=== PATIENT | female | born 1960 | race African-American/Black ===

== ENCOUNTER 2021-05-10 14:24 | Outpatient (REF) | payer OTHER, SELFPAY ==
[2021-05-10 16:37] LABS: Hematocrit 39.5 % (37.0-47.0); Hemoglobin 13.4 g/dl (12.0-16.0); Mean Corpuscular HGB Conc 33.9 g/dl (31.0-35.0); Mean Corpuscular Hemoglobin 29.1 pg (27.0-33.0); Mean Corpuscular Volume 85.9 fL (80.0-98.0); Mean Platelet Volume 10.6 fL (9.4-12.3); Platelet Count 361 X10*3/uL (160-400)
[2021-05-10 17:00] LABS: C Reactive Protein 1.03 mg/dL (< or = 0.50)
[2021-05-11 17:07] LABS: Transglutaminase Ab IgG <1.0 U/mL; Transglutaminase IgA <1.0 U/mL
== END 2021-05-10 14:25 | disposition home or self-care (01) ==
LOC: HO.LAB 14:24
PROVIDERS: PCP Internal Medicine; Visit Provider Nurse Practitioner Family
DX: R10.9 Unspecified abdominal pain (principal); K58.2 Mixed irritable bowel syndrome; K21.9 Gastro-esophageal reflux disease without esophagitis; D50.9 Iron deficiency anemia, unspecified
CPT/HCPCS: 36415; 85027; 86140; 86364

== ENCOUNTER → 2021-06-18 15:52 | Outpatient (BNVA) | payer OTHER, SELFPAY | PROVIDERS: PCP Internal Medicine; Visit Provider Nurse Practitioner Family | DX: Z13.89 Encounter for screening for other disorder (principal) ==

== ENCOUNTER 2021-10-17 15:43 | Outpatient (REF) | payer OTHER, SELFPAY ==
[2021-10-17 17:22] LABS: Alanine Aminotransferase 18 U/L (0-31); Albumin Level 4.2 g/dL (3.5-5.0); Alkaline Phosphatase 87 U/L (39-117); Anion Gap 15 (12-20); Aspartate Amino Transferase 16 U/L (5-31); Bilirubin Total < 0.2 mg/dL (0.0-1.0); Blood Urea Nitrogen 11 mg/dL (9-16); Carbon Dioxide 27 mmol/L (22-29); Chloride 101 mmol/L (96-108); Estimated Glomerular Filt Rate > 60; Glucose Random 86 mg/dL (60-115); Lipase 39 U/L (8-78); Potassium 4.1 mmol/L (3.3-5.1); Sodium 139 mmol/L (135-145); Total Protein 7.8 g/dL (6.5-8.0)
[2021-10-17 17:38] LABS: TSH reflex Free T4 1.14 uIU/mL (0.32-4.0)
[2021-10-17 17:48] LABS: Folate 8.9 ng/mL (> or = 4.0); Vitamin B12 414 pg/mL (200-900)
[2021-10-22 14:02] LABS: Vitamin D 25-OH, D2 <4 ng/mL; Vitamin D 25-OH, D3 61 ng/mL; Vitamin D 25-OH, Total 61 ng/mL (30-100)
== END 2021-10-17 15:44 | disposition home or self-care (01) ==
LOC: HO.LAB 15:43
PROVIDERS: Visit Provider Nurse Practitioner Family
DX: R10.9 Unspecified abdominal pain (principal); R19.7 Diarrhea, unspecified; E55.9 Vitamin D deficiency, unspecified
CPT/HCPCS: 36415; 80053; 82306; 82607; 82746; 83690; 84443

== ENCOUNTER 2022-05-06 11:15 | Day surgery (SDC) | payer OTHER, SELFPAY ==
[2021-12-03 13:17] VITALS: BMI 31.1
[2022-05-06] MEDS: Lactated Ringers 1,000 ML 50 ML IVCONT (11:37)
[2022-05-06 12:06] VITALS: BP 145/64; PULSE 92; RESP 20; TEMP 36.1; O2SAT 97
--- NOTE | 2022-05-06 12:53 | P.CONAN_ITS ---
[facility] Active Problems Active Problems: All Active Problems (Updated 05/10/21 @ 19:05 by Marilee Altamirano [facility]) GERD (gastroesophageal reflux disease) (Acute) IBS (irritable bowel syndrome) (Acute) Past Medical History Medical History GERD (gastroesophageal reflux disease) HTN (hypertension) Hyperlipidemia IBS (irritable bowel syndrome) S/P transesophageal echocardiogram (JULISA) Stroke Family History Family History Mother HTN (hypertension) History of open heart surgery Father Atrophic emphysema History of heart attack Social History Social History Patient Tobacco Use Status: Former Tobacco user Are you DNR?: No Advance Directives: No Advance Directives Information Provided: Yes Nutrition Risks: No Nutritional Risk Meds Allergies Allergy/AdvReac Type Severity Reaction Status Date / Time evolocumab Allergy Intermediate vomiting Verified 05/06/22 11:21 [From Sidra Cavazos] rosuvastatin Allergy Intermediate Tachycard Verified 05/06/22 11:21 ia Seasonal Allergies Allergy Intermediate hayfever Verified 05/06/22 11:21 synptoms Sulfa (Sulfonamide Allergy Intermediate Rash Verified 05/06/22 11:21 Antibiotics) metoprolol AdvReac Intermediate depression Verified 05/06/22 11:21 ramipril AdvReac Intermediate Cough Verified 05/06/22 11:21 aspirin AdvReac Mild Vomiting Verified 05/06/22 11:21 Active Medications: Current Medications Lactated Ringer's (Lr) 1,000 mls @ 50 mls/hr IVCONT .Q20H JON Last Admin: 05/06/22 11:37 Dose: 50 mls/hr Home Medications Medication Instructions Recorded Confirmed Last Taken Type alprazolam 1 mg tablet (Xanax) 1 mg PO QID 05/10/21 12/03/21 Unknown History beclomethasone dipropionate 80 2 spray intranasal DAILY 05/10/21 05/01/22 Unknown History mcg/actuation nasal HFA inhaler (QNASL) carisoprodol 350 mg tablet 350 mg PO QID PRN Pain 05/10/21 12/03/21 Unknown History clopidogrel 75 mg tablet 75 mg PO DAILY 05/10/21 12/03/21 Unknown History crisaborole 2 % topical ointment 1 appl topical BID 05/10/21 05/01/22 Unknown History (Eucrisa) ferrous sulfate 325 mg (65 mg 325 mg PO DAILY 05/10/21 05/01/22 Unknown History iron) tablet fluticasone propionate 50 2 spray intranasal DAILY 05/10/21 12/03/21 Unknown History mcg/actuation nasal spray,suspension hyoscyamine sulfate 0.375 mg 0.375 mg PO Q12H 05/10/21 12/03/21 Unknown History tablet,extended release,12 hr meclizine 25 mg tablet 25 mg PO TID PRN Dizziness 05/10/21 05/01/22 Unknown History olmesartan 20 1 tab PO BEDTIME 05/10/21 03/19/22 Unknown History mg-hydrochlorothiazide 12.5 mg tablet rosuvastatin 40 mg tablet (Crestor) 40 mg PO DAILY 05/10/21 05/01/22 Unknown History tobramycin 0.3 %-dexamethasone 0.1 0 drp ophthalmic (eye) 05/10/21 Unknown History % eye drops,suspension verapamil 180 mg 24 hr 360 mg PO BEDTIME 05/10/21 03/19/22 Unknown History capsule,extended release Exam Exam Date and Time: May 06, 2022 1253 Height,Weight and Vital Signs: Height 5 ft 2 in Weight 77.111 kg Last Vital Signs Temp 97 F 05/06/22 12:06 Pulse 92 05/06/22 12:06 Resp 20 05/06/22 12:06 BP 145/64 H 05/06/22 12:06 Pulse Ox 97 05/06/22 12:06 O2 Del Method Room Air 05/06/22 12:06 Airway Mallampati Class: III TM Dist: >3cm Neck ROM: Full Heart: RRR Lungs: CTA Assessment and Plan Final Anesthetic Review ASA Class: III Final Preanesthetic Review: Meds/Allgs Chart Reviewed, Consent Obtained/Reviewed and Anes Risks/Benef Reviewed Patient Risk: Low Procedure Risk: Low Anesthetic Plan Anesthetic Plan: MAC: Disposition: Standard PACU
--- NOTE | 2022-05-06 13:18 | MHC.SHP ---
Pre-Procedural Eval Section A Date of Service: 05/06/22 The patient is an INPATIENT: No The History & Physical has been completed within 30 days and I have reviewed it.: No Section B Chief Complaint: screening, IBS Relevant Family History (Specify if Yes): No Relevant Social History: Tobacco Use ( former smoker) Present Medications: see Short Stay Collaborative assessment Medical History: Significant History (GERD (gastroesophageal reflux disease) HTN (hypertension) Hyperlipidemia IBS (irritable bowel syndrome) S/P transesophageal echocardiogram (JULISA) Stroke) History of Previous Operations: No relevant previous surgery Allergies: Allergies Allergy/AdvReac Type Severity Reaction Status Date / Time evolocumab Allergy Intermediate vomiting Verified 05/06/22 11:21 [From Repatha [facility]] rosuvastatin Allergy Intermediate Tachycard Verified 05/06/22 11:21 ia Seasonal Allergies Allergy Intermediate hayfever Verified 05/06/22 11:21 synptoms Sulfa (Sulfonamide Allergy Intermediate Rash Verified 05/06/22 11:21 Antibiotics) metoprolol AdvReac Intermediate depression Verified 05/06/22 11:21 ramipril AdvReac Intermediate Cough Verified 05/06/22 11:21 aspirin AdvReac Mild Vomiting Verified 05/06/22 11:21 Review of Systems Sugical H&P ROS: Negative: Constitution, Cardiovascular and Respiratory and Yes, Specify: Gastrointestinal (IBS) Exam Surgical H&P Exam: Normal: Heart, Normal: Lungs, Normal: Extremities and Normal: Abdomen Plan Diagnosis/Plan: Unchanged I have reviewed the history and physical and performed a pertinent physical examination on my patient. No changes have occurred unless specified. Time Spent With Patient Time: Total time managing care of this patient today ____ minutes.
--- NOTE | 2022-05-06 13:29 | PM.OP ---
Brief Operative Note Date of Service: 05/06/22 Pre-op diagnosis: colon cancer screening, IBS Post-op diagnosis: other ( colon polyps, diverticulosis, hemorrhoids) Procedure: COLONOSCOPY TILL CECUM WITH BIOPSIES AND SNARE POLYPECTOMY Surgeon: Betzy Wilson MD Anesthesia: MAC Was an Communication Skills Instructor used for this Procedure?: Yes Communication Skills Instructor: Emeka Martínez Estimated blood loss (mL): 2 Pathology: other (A. Rt colon, B. TC polyps, C. Left colon) Condition: stable Disposition: PACU
--- NOTE | 2022-05-06 13:30 | P.OP_ITS ---
Operative Note Operative Note Date of Service: 05/06/22 Narrative: COLONOSCOPY TILL CECUM WITH BIOPSIES AND SNARE POLYPECTOMY Indication:? Colon cancer screening Endoscopist:? Betzy Wilson MD Anesthesia Provider:?Dr Milligan Anesthesia type:?MAC Consent: Indications for the procedure and potential complications of bleeding, perforation, reaction to medications and missed diagnosis were discussed with the patient and informed consent was obtained. Instrument: Olympus PCF H 190 L variable stiffness pediatric colonoscope Monitoring: Vital signs and clinical assessment, intermittent blood pressure monitoring, continuous EKG monitoring, Pulse oximetry and Carbon Dioxide monitoring were done throughout the procedure. Please see anesthesia flowsheet. Colon withdrawl time was 17 minutes. Procedure: The patient was placed in the left lateral decubitis position and pre-procedure medications were administered. After a digital rectal examination of the ano-rectum, the video colonoscope was inserted into the rectum and advanced through the colon to the cecum. The colonoscope was slowly withdrawn in a retrograde panoramic fashion and the colon mucosa was carefully examined including a retroflexed view of the rectum. Findings and interventions are described below. Procedure Difficulty: colon was long and there was some loop formation Findings: Terminal Ileum: Not evaluated Cecum: Normal Ascending Colon: Normal Transverse Colon: A 4-5 mm sessile polyp - removed with a cold biopsy. Two 7-8 mm diminutive appearing polyps removed with a cold snare Descending Colon: moderate diverticulosis Sigmoid Colon: Moderate diverticulosis Rectum: Normal Ano-rectum: Small internal hemorrhoids Colon preparation: Good Impression and Post Procedure Diagnosis: Colonoscopy Findings: Three small polyps removed Random biopsies were obtained from the right and left colon to check for microscopic colitis Moderate diverticulosis seen in the left colon Small hemorrhoids on retroflexed exam. Plan: Await pathology results Patient has an appointment on 05/20/22 in the GI Clinic with Marilee Altamirano FNP- [facility]. Repeat Colonoscopy interval based on path results - in 3-5 years if polyps are adenomatous and 10 years if polyps are hyperplastic. Above findings were reviewed with the patient and colon polyps and diverticulosis handouts were given in the discharge area
[2022-05-06 14:10] VITALS: BP 123/68; PULSE 77; RESP 16; TEMP 36.5; O2SAT 96
--- NOTE | 2022-05-06 14:21 | HO.POSTANES ---
Post Anesthesia Evaluation Post Anesthesia Evaluation Vital Signs: Vital Signs Temp Pulse Resp BP Pulse Ox O2 Del Method 05/06/22 14:10 97.7 F 77 16 123/68 96 Room Air 05/06/22 12:06 97 F 92 20 145/64 H 97 Room Air Anesthesia: Monitored Mental Status: Awake Pain Control: Satisfactory Nausea/Vomiting: None Hydration: Adequate Anesthesia-Related Issues: No Anes. Related Issues
[2022-05-06 14:25] VITALS: BP 142/70; PULSE 74; RESP 16; TEMP 36.7; O2SAT 96
== END 2022-05-06 14:57 | disposition home or self-care (01) ==
PROVIDERS: Visit Provider Internal Medicine Gastroenterology
PROC: 0DJD8ZZ Inspection of Lower Intestinal Tract, Via Natural or Artificial Opening Endoscopic (ICD-10-PCS; CPT 45378; principal; 2022-05-06 12:40)
DX: Z12.11 Encounter for screening for malignant neoplasm of colon (principal); K58.2 Mixed irritable bowel syndrome; K21.9 Gastro-esophageal reflux disease without esophagitis; D12.3 Benign neoplasm of transverse colon; K57.30 Diverticulosis of large intestine without perforation or abscess without bleeding; K64.8 Other hemorrhoids; I10 Essential (primary) hypertension; E78.5 Hyperlipidemia, unspecified; Z86.73 Personal history of transient ischemic attack (TIA), and cerebral infarction without residual deficits; Z88.2 Allergy status to sulfonamides; Z88.8 Allergy status to other drugs, medicaments and biological substances; Z87.891 Personal history of nicotine dependence
CPT/HCPCS: 45385; 45380; 88305

== ENCOUNTER → 2022-05-29 16:39 | Outpatient (BNVA) | payer OTHER, SELFPAY | PROVIDERS: Visit Provider Nurse Practitioner Family | DX: Z13.89 Encounter for screening for other disorder (principal) ==

== ENCOUNTER 2023-05-13 11:27 | Outpatient (AMB) | payer OTHER, SELFPAY ==
--- NOTE | 2023-05-13 11:30 | MHC.OFFVIS ---
Intake Vital Signs 05/13/23 11:31 Height 5 ft 1 in Weight 187 lb 6.287 oz BMI 35.4 BP 112/54 L Blood Pressure Location Lt brachial Position Sitting Pulse 106 H Intake Visit Reasons: r/s from 04/09 6 mnth follow up Intake Note: Roxana presents in the office as a 6 month follow up. CC: She states that she is just here for a follow up - no concerns at this time. She is trying different foods gradually. If she eats zeb it will go right through her. Allergies evolocumab [From Sidra Cavazos] Allergy (Intermediate, Verified 05/13/23 11:31) vomiting Seasonal Allergies Allergy (Intermediate, Verified 05/13/23 11:31) hayfever synptoms Sulfa (Sulfonamide Antibiotics) Allergy (Intermediate, Verified 05/13/23 11:31) Rash metoprolol Adverse Reaction (Intermediate, Verified 05/13/23 11:31) depression ramipril Adverse Reaction (Intermediate, Verified 05/13/23 11:31) Cough aspirin Adverse Reaction (Mild, Verified 05/13/23 11:31) Vomiting HPI r/s from 04/09 mnth follow up HPI Details LAST VISIT: GERD (gastroesophageal reflux disease) Continue avoiding dietary triggers and late night snacking. Staying upright for minimal 3 hours after meals discussed with patient. IBS (irritable bowel syndrome) Irritable bowels with occasional loose stools with some periods of constipation. Dicyclomine ordered to 3 times a day. Patient was however encouraged to making sure that she empties her bowels completely as dicyclomine can slow down her peristalsis. Low FODMAP diet discussed with patient. Patient is following recommendations given to her last visit. Abdominal bloating Occasional abdominal bloating postprandially. Discussed with patient the importance of eliminating her bowels completely. Continue low FODMAP diet as discussed previously Sessile serrated polyp of colon Sessile serrated polyp found on colonoscopy without high-grade dysplasia or carcinoma. Patient will need to repeat colonoscopy in 3 years, sooner if clinically necessary. Patient will return to see me to manage her IBS, postprandial abdominal bloating and GERD in 6 months, sooner on as needed basis. Patient is agreeable to this plan and verbalizes understanding of instructions. She was given the opportunity to ask questions and all questions answered. ? Thank you for allowing me to participate in her care. Plan Medications New polyethylene glycol 3350 (Miralax) 17 grams PO DAILY 510 grams 2RF Changed From dicyclomine 10 mg PO BID PRN 60 caps 2RF abdominal discomfort K58.9 - Irritable bowel syndrome without diarrhea To dicyclomine 10 mg PO TID PRN 90 caps 2RF abdominal discomfort K58.9 - Irritable bowel syndrome without diarrhea Discontinued methylcellulose (laxative) Discontinued Reason: Duplicate 500 mg PO DAILY 30 tabs 2RF K59.00 - Constipation, unspecified sennosides Discontinued Reason: Doctor's Order 8.6 mg PO BEDTIME 90 tabs 3RF constipation K59.00 - Constipation, unspecified docusate sodium Discontinued Reason: Patient no longer taking 100 mg PO BEDTIME 30 caps 3RF K59.00 - Constipation, unspecified TODAY'S VISIT Patient is here today for follow-up. Patient reports that she has been doing fairly well. Occasional right lower quadrant pain and bloating. Patient states that after she takes Gas-X her symptoms go away. Patient does report occasional constipation. Takes MiraLax on as needed basis along with Senokot. Patient states that she uses dicyclomine for abdominal cramping, however she states that she is only using as needed maybe once every couple of weeks. Patient denies dyspepsia, dysphagia or odynophagia. Patient denies melena, hematochezia, unintentional weight loss or ribbon like stools. Patient admits to gaining weight and states that her PCP wants her to lose at least 15 lb. Patient will start walking with her . [facility] Medical History (Updated 05/13/23 @ 12:33 by PHILLIP Lauren-) Diverticulosis GERD (gastroesophageal reflux disease) IBS (irritable bowel syndrome) S/P transesophageal echocardiogram (JULISA) Hyperlipidemia Stroke HTN (hypertension) Surgical History History of esophagogastroduodenoscopy (EGD) Hx of colonoscopy Family History Mother HTN (hypertension) History of open heart surgery Father Atrophic emphysema History of heart attack Social History Patient Tobacco Use Status: Former Tobacco user Review of Systems Const Denies weight gain and Denies weight loss ENT Reports no additional complaints, Denies dysphagia and Denies odynophagia Card Reports no additional complaints Resp Reports no additional complaints GI Reports abdominal pain (Occasional), Denies belching, Denies melena, Reports bloating, Denies change in bowel habits, Reports constipation (Occasional), Denies dysphagia, Denies excessive flatus, Denies dyspepsia, Denies heartburn, Denies diarrhea, Denies loose stools, Denies nausea, Denies odynophagia and Denies vomiting Musc Reports no additional complaints Neuro Reports no additional complaints Psych Reports no additional complaints Endo Reports no additional complaints Physical Exam Vital Signs: Last Vital Signs Pulse 106 H 05/13/23 11:31 BP 112/54 L 05/13/23 11:31 BMI result Body Mass Index 35.4 Const General: healthy appearing and no acute distress Nutritional Appearance: obese Orientation/consciousness: patient oriented x3 Resp Effort & Inspection: normal respiratory effort, able to speak in complete sentences, no tracheal deviation and symmetric chest movement Auscultation: clear to auscultation bilaterally Cardio Rate: regular rate GI Inspection: Yes normal to inspection, No distended and Yes obesity Palpation (GI): Soft to palpation, not firm, nontender and No hepatosplenomegaly present Auscultation: normal bowel sounds General: Yes no CVA tenderness Back/Spine/Pelvis Back: no CVA tenderness Skin General skin exam: elasticity normal, turgor normal and dry skin Neuro General: patient oriented x3 Psych Appearance: grossly normal Mental Status: mental status grossly normal Assessment & Plan Assessment & Plan (1) GERD (gastroesophageal reflux disease): Code(s): K21.9 - Gastro-esophageal reflux disease without esophagitis Qualifiers: Esophagitis presence: esophagitis presence not specified Qualified Code(s): K21.9 - Gastro-esophageal reflux disease without esophagitis (2) IBS (irritable bowel syndrome): Code(s): K58.9 - Irritable bowel syndrome without diarrhea Qualifiers: Irritable bowel syndrome type: with both diarrhea and constipation Qualified Code(s): K58.2 - Mixed irritable bowel syndrome (3) Diverticulosis: Code(s): K57.90 - Diverticulosis of intestine, part unspecified, without perforation or abscess without bleeding (4) Abdominal bloating: Code(s): R14.0 - Abdominal distension (gaseous) Plan Agreeing with weight loss. Was encouraged to increase fluid intake and activity to promote better bowel motility. Stressed with the patient the importance of moving her bowels daily. Left side of her colon was found to have moderate diverticulosis. The importance of emptying her bowels stressed with patient. Right lower quadrant pain related to gas trapping as it goes away as soon as she takes Gas-X. Bowel motility could be decreased due to severe diverticulosis on left side. Patient was encouraged to take MiraLax daily as well as Senokot to help her empty her bowels better. High-fiber diet stressed with patient, however patient will need to adjust her diet as some of high-fiber food can be very gassy. Patient was also encouraged to take probiotics daily. Patient will return in the office in 1 year, sooner on as needed basis. Patient is agreeable to this plan and verbalizes understanding of instructions. She was given the opportunity to ask questions and all questions answered. Coding Level of Care Code Est Pt Level 3 (31599) Diagnoses Gastroesophageal reflux disease, unspecified whether esophagitis present K21.9 Esophagitis presence: esophagitis presence not specified Irritable bowel syndrome with both constipation and diarrhea K58.2 Irritable bowel syndrome type: with both diarrhea and constipation Diverticulosis K57.90 Abdominal bloating R14.0 Time Spent (min) 30 Comment 20 minutes spent with patient and additional 10 minutes spent reviewing her records
[2023-05-13 11:31] VITALS: BP 112/54; PULSE 106; BMI 35.4
== END 2023-05-13 12:36 | disposition home or self-care (01) ==
PROVIDERS: PCP Internal Medicine; Visit Provider Nurse Practitioner Family
DX: K21.9 Gastro-esophageal reflux disease without esophagitis (principal); K58.2 Mixed irritable bowel syndrome; K57.90 Diverticulosis of intestine, part unspecified, without perforation or abscess without bleeding; R14.0 Abdominal distension (gaseous)
CPT/HCPCS: 99213

== ENCOUNTER → 2023-05-13 11:27 | Outpatient (BNVA) | payer OTHER, SELFPAY | PROVIDERS: PCP Internal Medicine; Visit Provider Nurse Practitioner Family ==

== ENCOUNTER 2024-08-11 15:44 | Outpatient (AMB) | payer OTHER, SELFPAY ==
--- OUTSIDE RECORDS SUMMARY | 2024-08-11 15:49 | XMS_ITS | Patient Health Record ---
Author Organization [employer] [facility] Address [address] [place] [address] Support Name Relationship Address Phone ZEKE BIA Guarantor Unknown [phone] Allergies Allergen (clinical drug ingredient) Drug/Non Drug Allergy documented on EMR Reaction Allergy Type Onset Date Status aspirin ASPIRIN Unknown Drug Allergy Active Reason For Referral No Information Medications Medication SIG (Take, Route, Fr equency, Duration) Notes Start Date End Date Status Verapamil HCl ER 240MG 1 ORAL daily; Duration: -3 Glen-MJ 02/28/2011 Active Benicar 40MG 1 ORAL daily; Duration: -3 Glen-MJ 02/28/2011 Active Plavix 75MG 1 ORAL daily; Duration: -3 Glen-MJ 02/28/2011 Active Problems Problem Type SNOMED Code ICD Code Onset Dates Problem Status W/U Status Risk Notes Problem Essential hypertension (70445271) Unspecified essential hypertension (401.9) Active confirmed Major Problem Menopausal symptom (75123652) Symptomatic menopausal or female climacteric states (627.2) Active confirmed Major Problem Gynecological examination normal (733724828249611) Routine gynecological examination (V72.31) Active confirmed Major Problem Screening for malignant neoplasm of colon (881514806) Special screening for malignant neoplasms, colon (V76.51) Active confirmed Major Plan Of Treatment No Information Insurance Providers Payer Name Payer Address Payer Phone Subscriber Number Group Number Insured Name Patient Relationship to Insured Coverage Start Date Coverage End Date [facility] [address] [place] [address] [phone] [id number] BIA ALANIS Self - patient is the insured Medical (General) History Medical History History ICD Code OBESITY
--- OUTSIDE RECORDS SUMMARY | 2024-08-11 15:49 | XMS_ITS | Clinical Summary ---
Author Organization [facility] Address [address] [place] [address] Phone Care Team Providers Care Nursing Department Chairperson Name Role Phone Charisma Sanders MD Primary Care Provider [phone] Allergies Active Allergy Reactions Criticality Noted Date Comments Aspirin Itching,GI intolerance 04/28/2024 took without complication on 08/07/16. 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, [facility] V28) Anxiety Social History Tobacco Use Types Packs/Day Years Used Date Smoking Tobacco: Never Assessed Comments No Sex and Gender Information Value Date Recorded Sex Assigned at Female 12/30/2023 9:17 AM EST Legal Sex Female 1:48 PM EST Gender Identity Female 12/30/2023 9:17 AM EST Sexual Orientation Straight 12/30/2023 9: 17 AM EST Obstetrics History Last Filed Vital Signs Vital Sign Reading Time Taken Comments Blood Pressure 123/62 04/28/2024 9:48 AM EDT Pulse 78 04/28/2024 9:48 AM EDT Temperature 37 C (98.6 F) 04/28/2024 9:48 AM EDT Respiratory Rate 15 04/28/2024 9:48 AM EDT Oxygen Saturation 97% 04/28/2024 9:48 AM EDT Inhaled Oxygen Concentration - - Weight 83.5 kg (184 lb) 04/28/2024 12:17 PM EDT Height 157.5 cm (5' 2 ) 04/28/2024 12:17 PM EDT Body Mass Index 33.65 04/28/2024 12:17 PM EDT Plan of Treatment Health Maintenance Due Date Last Done Comments Cervical Cancer Screening: Pap Smear 1981 Pneumococcal Vaccine: 50+ Years (1 of 1 - PCV) 2010 Zoster Vaccines (1 of 2) 2010 Cholesterol Screening (Lipid Panel) 01/08/2022 Colorectal Cancer Screening: Colonoscopy 01/08/2022 Depression Screening 01/08/2022 HIV Screening 01/08/2022 Hepatitis C Screening 01/08/2022 Social Influencers of Health Screening 01/08/2022 Hypertension/CHF/CAD Annual BMP Blood Test 04/28/2025 04/28/2024 Breast Cancer Screening 01/20/2026 01/21/20, 05/20/2022, 12/19/2017 DTaP,Tdap,and Td Vaccines (2 - Td or Tdap) 12/29/2031 12/28/2021 RSV Immunization Adult Patients (1 - 1-dose 75+ series) 05/15/2035 Influenza Vaccine Completed 12/05/2023, , 12/17/2021, Additional history exists COVID-19 Vaccine Completed 01/01/2024, 11/2022, 11/30/2021, Additional history exists HIB Vaccines Aged Out No longer eligi ble based on patient's age to complete this topic HPV Vaccines Aged Out No longer eligi ble based on patient's age to complete this topic Hepatitis A Vaccines Aged Out No long er eligible based on patient's age to complete this topic Hepatitis B Vaccines Aged Out No long er eligible based on patient's age to complete this topic IPV Vaccines Aged Out No longer eligi ble based on patient's age to complete this topic MMR Vaccines Aged Out No longer eligi ble based on patient's age to complete this topic Meningococcal ACWY Vaccine Aged Out N o longer eligible based on patient's age to complete this topic Meningococcal B Vaccine Aged Out No l onger eligible based on patient's age to complete this topic Pneumococcal Vaccine: Pediatrics (0 to 5 Years) and At-Risk Patients (6 to 64 Years) Aged Out No longer eligible based on patient's age to complete this topic RSV Immunization Patients Under 20 months Aged Out No longer eligible based on patient's age to complete this topic Varicella Vaccines Aged Out No longer eligible based on patient's age to complete this topic Procedures Procedure Name Priority Date/Time Associated Diagnosis Comments BASIC METABOLIC PANEL STAT 04/28/2024 9:58 AM EDT MG MAMMO DIGITAL SCREENING W DONAVAN BILAT Routine 01/21/2024 8:53 AM EST Encounter for screening mammogram for malignant neoplasm of breast from Last 3 Months or Most Recently Relevant to Health Maintenance Results * (ABNORMAL) Basic metabolic panel (04/28/2024 9:58 AM EDT) Sodium 139 133 - 145 mmol/L LAB CHEMISTRY METHOD 04/28/2024 10:45 AM [facility] Potassium 3.7 3.5 - 5.5 mmol/L LAB CHEMISTRY METHOD 04/28/2024 10:45 AM [facility] Chloride 105 96 - 110 mmol/L LAB CHEMISTRY METHOD 04/28/2024 10:45 AM [facility] CO2 30 21 - 32 mmol/L LAB CHEMISTRY METHOD 04/28/2024 10:45 AM [facility] Anion Gap 4 3 - 11 LAB CHEMISTRY METHOD 04/28/2024 10:45 AM [facility] Glucose 110(H) 70 - 100 mg/dL LAB CHEMISTRY METHOD 04/28/2024 10:45 AM [facility] BUN 13 5 - 25 mg/dL LAB CHEMISTRY METHOD 04/28/2024 10:45 AM [facility] Creatinine 0.92 0.50 - 1.10 mg/dL LAB CHEMISTRY METHOD 04/28/2024 10:45 AM [facility] eGFR 70 >=60 mL/min/1. 73m2 LAB CHEMISTRY METHOD 04/28/2024 10:45 AM [facility] Comment:Calculation based on the Chronic Kidney Disease Epidemiology Collaboration (CKD-EPI) equation refit without adjustment for race. BUN/Creatinine Ratio 14.1 LAB CHEMISTRY METHOD 04/28/2024 10:45 AM EDT [facility] Calcium 10.1 8.5 - 10.5 mg/dL LAB CHEMISTRY METHOD 04/28/2024 10:45 AM EDT [facility] Blood Venous blood specimen / Unknown Venipuncture / Unknown 04/28/2024 9:58 AM EDT 04/28/2024 10:22 AM EDT us Lisandro Durbin MD LAB BLOOD ORDERABLES Final Resu lt [facility] [address] [place] [address], [place] [phone] * MG Mammo Digital Screening w Donavan bilat (01/21/2024 8:53 AM EST) Anatomical Region Laterality Modality Breast Bilateral Mammography 01/21/2024 2:39 PM EST Impressions 01/21/2024 2:59 PM EST No mammographic evidence of malignancy. No suspicious interval change. A negative mammogram in the presence of a clinically suspicious palpable abnormality does not preclude the possibility of malignancy or alter the indications for biopsy. ASSESSMENT: BI-RADS 2: BENIGN RECOMMENDATION(S): 1: Routine screening mammogram BILATERAL in 1 year. -------- FINAL REPORT -------- Dictated By: Domenico Ventura Dictated Date: 01/21/2024 14:39 ET Assigned Physician: Domenico Ventura Reviewed and Electronically Signed By: Domenico Ventura Signed Date: 01/21/2024 14:59 ET Workstation ID: [id number] Transcribed By: Self Edit Transcribed Date: 01/21/2024 14:41 ET Narrative 01/21/2024 2:59 PM EST EXAM: SCREENING MAMMOGRAPHY, BILATERAL HISTORY: SCREENING. No additional history. COMPARISON: 05/16/2022 TECHNIQUE: Synthesized CC and MLO projections of each breast. Tomosynthesis of each breast in the CC and MLO projections. ADDITIONAL IMAGING: None Computer-aided detection was employed with the iCAD [employer]AR AI 3-D. TISSUE DENSITY: There are scattered areas of fibroglandular density. (BI-RADS category B) FINDINGS: RIGHT BREAST: There are multiple small varying sized circumscribed equal density round and oval masses. No suspicious interval change. No additional suspicious right breast findings LEFT BREAST: There are multiple small varying sized circumscribed equal density round and oval masses. No suspicious interval change. No additional suspicious left breast findings Procedure Note Domenico Ventura MD - 01/21/2024 EXAM: SCREENING MAMMOGRAPHY, BILATERAL HISTORY: SCREENING. No additional history. COMPARISON: 05/16/2022 TECHNIQUE: Synthesized CC and MLO projections of each breast.Tomosynthesis of each breast in the CC and MLO projections. ADDITIONAL IMAGING: None Computer-aided detection was employed with the iCAD LABOMAR AI 3-D. TISSUE DENSITY: There are scattered areas of fibroglandular density.(BI-RADS category B) FINDINGS: RIGHT BREAST: There are multiple small varying sized circumscribed equal density roundand oval masses. No suspicious interval change. No additional suspiciousright breast findings LEFT BREAST: There are multiple small varying sized circumscribed equal density roundand oval masses. No suspicious interval change. No additional suspiciousleft breast findings IMPRESSION: No mammographic evidence of malignancy. No suspicious interval change. A negative mammogram in the presence of a clinically suspicious palpableabnormality does not preclude the possibility of malignancy or alter theindications for biopsy. ASSESSMENT: BI-RADS 2: BENIGN RECOMMENDATION(S): 1: Routine screening mammogram BILATERAL in 1 year. -------- FINAL REPORT -------- Dictated By: Domenico Ventura Dictated Date: 01/21/2024 14:39 ET Assigned Physician: Domenico Ventura Reviewed and Electronically Signed By: Domenico Ventura Signed Date: 01/21/2024 14:59 ET Workstation ID: [id number] Transcribed By: Self Edit Transcribed Date: 01/21/2024 14:41 ET us Charisma Sanders MD IMG BI PROCEDURES Final Result from Last 3 Months or Most Recently Relevant to Health Maintenance Insurance [employer] Care Teams Nursing Department Chairperson Relationship Specialty Start Date End Date Charisma Sanders MD [address] [address] PCP - General Internal Medicine 12/30/23
--- OUTSIDE RECORDS SUMMARY | 2024-08-11 15:50 | XMS_ITS | Patient Health Record ---
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 Name Role Phone [facility] Primary Care Provider [phone] Flor Richardson Unavailable [phone] Allergies Allergen (clinical drug ingredient) Drug/Non Drug Allergy documented on EMR Reaction Allergy Type Onset Date Status Substance with sulfonamide structure and antibacterial mechanism of action (substance) Sulfa (sulfonamide antibiotics) (uncoded) Unknown Allergy Active aspirin Aspirin Unknown Drug Allergy Active Metoprolol Succinate Depression Drug Allergy Active ramipril Ramipril cough Drug Allergy Active rosuvastatin Rosuvastatin Calcium Tachycardia Drug Allergy Active evolocumab Repatha Vomitting Drug Allergy 03/21/2020 Activ e Results Component Value Reference Range Notes IMGEAP Reviewed date:01/21/2024 05:44:49 PM Interpretation: Performing Lab: Notes/Report: See Note [facility], a member of [facility] EXAM: SCREENING MAMMOGRAPHY, BILATERAL HISTORY: SCREENING. No additional history. COMPARISON: 05/16/2022 TECHNIQUE: Synthesized CC and MLO projections of each breast. Tomosynthesis of each breast in the CC and MLO projections. ADDITIONAL IMAGING: None Computer-aided detection was employed with the iCAD profound AI 3-D. TISSUE DENSITY: There are scattered [...] change. No additional suspicious left breast findings IMPRESSION: No mammographic evidence of [...] Signed Date: 01/21/2024 14:59 ET Workstation ID: [id number] Transcribed By: Self Edit Transcribed Date: 01/21/2024 14:41 ET Iron and TIBC-[id number] Reviewed date:12/28/2023 07:04:01 AM Interpretation: Performing Lab:[facility] [place], Phone - [phone], Director - Markel Notes/Report: Iron Bind.Cap.(TIBC) 320 250-450 ug/dL UIBC 252 118-369 ug/dL Iron 68 27-139 ug/dL Iron Saturation 21 15-55 % Ferritin-[id number] Reviewed date:12/28/2023 07:04:02 AM Interpretation: Performing Lab:[facility], [address] [place] [address], Phone - [phone], Director - MDSulyy Notes/Report: Ferritin 136 15-150 ng/mL CBC With Differential/Platel et-[id number] Reviewed date:12/28/2023 07:04:02 AM Interpretation: Performing Lab:[facility], Phone - [phone], Director - MDJodry Notes/Report: WBC 14.2 3.4-10.8 x10E3/uL RBC 4.74 3.77-5.28 x10E6/uL Hemoglobin 13.6 11.1-15.9 g/dL Hematocrit 42.0 34.0-46.6 % MCV 89 79-97 fL MCH 28.7 26.6-33.0 pg MCHC 32.4 31.5-35.7 g/dL RDW 14.3 11.7-15.4 % Platelets 346 150-450 x10E3/uL Neutrophils 62 Not Estab. % Lymphs 32 Not Estab. % Monocytes 5 Not Estab. % Eos 1 Not Estab. % Basos 0 Not Estab. % Neutrophils (Absolute) 8.8 1.4-7.0 x10E3/uL Lymphs (Absolute) 4.5 0.7-3.1 x10E3/uL Monocytes(Absolute) 0.7 0.1-0.9 x10E3/uL Eos (Absolute) 0.1 0.0-0.4 x10E3/uL Baso (Absolute) 0.0 0.0-0.2 x10E3/uL Immature Granulocytes 0 Not Estab. % Immature Grans (Abs) 0.0 0.0-0.1 x10E3/uL Reticulocyte Count-[id number] Reviewed date:12/28/2023 07:04:02 AM Interpretation: Performing Lab:[facility], [address] [facility], Phone - [phone], Director - Markel Notes/Report: Reticulocyte Count 1.5 0.6-2.6 % Vitamin D, 84-Eopqqpg-[id number] Reviewed date:12/28/2023 07:04:02 AM Interpretation: Performing Lab:[facility], [address] [facility], [place], Phone - [phone], Director - Markel Notes/Report: Vitamin D, 25-Hydroxy 43.1 30.0-100.0 ng/mL Vitamin D deficiency has been defined by the [place] [employer] and an Endocrine Society practice guideline as a level of serum 25-OH vitamin D less than 20 ng/mL (1,2). The Endocrine Society went on to further define vitamin D insufficiency as a level between 21 and 29 ng/mL (2). 1. IOM ([place] [employer]). 2010. Dietary reference intakes for calcium and D. [place]: The National Academies Press. 2. Radha MF, Nayla NC, Julien OVIEDO, et al. Evaluation, treatment, and prevention of vitamin D deficiency: an Endocrine Society clinical practice guideline. JCEM. 2010; 96(7):1911-30. Comp. Metabolic Panel (14)-3 94261 Reviewed date:12/28/2023 07:04:02 AM Interpretation: Performing Lab:Raquel Bee [address] [facility], Phone - [phone], Director - MDSulyy Notes/Report: Glucose 93 70-99 mg/dL BUN 10 8-27 mg/dL Creatinine 0.78 0.57-1.00 mg/dL eGFR 85 >59 mL/min/1.73 BUN/Creatinine Ratio 13 12-28 Sodium 139 134-144 mmol/L Potassium 3.9 3.5-5.2 mmol/L Chloride 97 96-106 mmol/L Carbon Dioxide, Total 22 20-29 mmol/L Calcium 10.0 8.7-10.3 mg/dL Protein, Total 7.7 6.0-8.5 g/dL Albumin 4.5 3.9-4.9 g/dL Globulin, Total 3.2 1.5-4.5 g/dL Bilirubin, Total 0.3 0.0-1.2 mg/dL Alkaline Phosphatase 97 44-121 IU/L AST (SGOT) 32 0-40 IU/L ALT (SGPT) 31 0-32 IU/L LP+Non-HDL Cholesterol-68240 5 Reviewed date:12/28/2023 07:04:02 AM Interpretation: Performing Lab:[facility], [address] [place] [address], Phone - [phone], Director - MDSulyy Notes/Report: Cholesterol, Total 170 100-199 mg/dL Triglycerides 136 0-149 mg/dL HDL Cholesterol 50 >39 mg/dL VLDL Cholesterol Julian 24 5-40 mg/dL LDL Chol Calc (NIH) 96 0-99 mg/dL Non-HDL Cholesterol 120 0-129 mg/dL HCV Antibody-[id number] Reviewed date:12/28/2023 07:04:02 AM Interpretation: Performing Lab:[facility], [address] [facility], Phone - [phone], Director - MDSulyy Notes/Report: Hep C Virus Ab Non Reactive Non Reactive HCV antibody alone does not differentiate between previously resolved infection and active infection. Equivocal and Reactive HCV antibody results should be followed up with an HCV RNA test to support the diagnosis of active HCV infection. [email or web address] Screening [employer] Reviewed date:06/01/2024 12:27:42 PM Interpretation: Performing Lab: Notes/Report: Ferritin-[id number] Reviewed date:10/06/2023 06:49:39 PM Interpretation: Performing Lab:[facility] [place], [address] [place] [address], Phone - [phone], Director - Josedry Notes/Report: Ferritin 136 15-150 ng/mL CBC With Differential/Platel et-[id number] Reviewed date:10/06/2023 06:49:39 PM Interpretation: Performing Lab:[facility] [place], [address] [place] [address], Phone - [phone], Director - Virgily Notes/Report: WBC 12.7 3.4-10.8 x10E3/uL RBC 4.71 3.77-5.28 x10E6/uL Hemoglobin 13.8 11.1-15.9 g/dL Hematocrit 42.7 34.0-46.6 % MCV 91 79-97 fL MCH 29.3 26.6-33.0 pg MCHC 32.3 31.5-35.7 g/dL RDW 14.8 11.7-15.4 % Platelets 358 150-450 x10E3/uL Neutrophils 61 Not Estab. % Lymphs 33 Not Estab. % Monocytes 5 Not Estab. % Eos 1 Not Estab. % Basos 0 Not Estab. % Neutrophils (Absolute) 7.7 1.4-7.0 x10E3/uL Lymphs (Absolute) 4.2 0.7-3.1 x10E3/uL Monocytes(Absolute) 0.6 0.1-0.9 x10E3/uL Eos (Absolute) 0.1 0.0-0.4 x10E3/uL Baso (Absolute) 0.0 0.0-0.2 x10E3/uL Immature Granulocytes 0 Not Estab. % Immature Grans (Abs) 0.0 0.0-0.1 x10E3/uL Reticulocyte Count-[id number] Reviewed date:10/06/2023 06:49:39 PM Interpretation: Performing Lab:[facility] [address], Phone - [phone], Director - Markel Notes/Report: Reticulocyte Count 1.4 0.6-2.6 % Vitamin D, 70-Wiorbdn-[id number] Reviewed date:10/06/2023 06:49:39 PM Interpretation: Performing Lab:[facility], Phone - [phone], Director - MDJodry Notes/Report: Vitamin D, 25-Hydroxy 29.8 30.0-100.0 ng/mL Vitamin D deficiency has been defined by the [place] [employer] and an Endocrine Society practice guideline as a level of serum 25-OH vitamin D less than 20 ng/mL (1,2). The Endocrine Society went on to further define vitamin D insufficiency as a level between 21 and 29 ng/mL (2). 1. IOM ([place] [employer]). 2010. Dietary reference intakes for calcium and D. [place]: The National Academies Press. 2. Radha MF, Nayla LINDER, Julien OVIEDO, et al. Evaluation, treatment, and prevention of vitamin D deficiency: an Endocrine Society clinical practice guideline. JCEM. 2010; 96(7):1911-30. Comp. Metabolic Panel (14)-3 Reviewed date:10/06/2023 06:49:39 PM Interpretation: Performing Lab:[facility], [address] [place], [place], Phone - [phone], Director - Markel Notes/Report: Glucose 87 70-99 mg/dL BUN 8 8-27 mg/dL Creatinine 0.78 0.57-1.00 mg/dL eGFR 85 >59 mL/min/1.73 BUN/Creatinine Ratio 10 12-28 Sodium 140 134-144 mmol/L Potassium 3.8 3.5-5.2 mmol/L Chloride 100 96-106 mmol/L Carbon Dioxide, Total 25 20-29 mmol/L Calcium 10.0 8.7-10.3 mg/dL Protein, Total 7.5 6.0-8.5 g/dL Albumin 4.3 3.9-4.9 g/dL Globulin, Total 3.2 1.5-4.5 g/dL Bilirubin, Total <0.2 0.0-1.2 mg/dL Alkaline Phosphatase 105 44-121 IU/L AST (SGOT) 39 0-40 IU/L ALT (SGPT) 36 0-32 IU/L LP+Non-HDL Cholesterol-29572 5 Reviewed date:10/06/2023 06:49:39 PM Interpretation: Performing Lab:[facility], [address], [place], Phone - [phone], Director - Markel Notes/Report: Cholesterol, Total 179 100-199 mg/dL Triglycerides 205 0-149 mg/dL HDL Cholesterol 50 >39 mg/dL VLDL Cholesterol Julian 35 5-40 mg/dL LDL Chol Calc ([facility]) 94 0-99 mg/dL Non-HDL Cholesterol 129 0-129 mg/dL FIB-4 w/Rx [place] [address] us-[id number] Reviewed date:10/06/2023 06:49:39 PM Interpretation: Performing Lab:[facility] [place], [address] [place] [address], [place], Phone - [phone], Director - Markel Notes/Report: FIB-4 Index 1.14 0.00-2.67 0.00 - 1.29 Low risk for advanced liver fibrosis 1.30 - 2.67 Indeterminate risk for advanced liver fibrosis >2.67 High risk for advanced fibrosis and for the development of other liver related events Phosphatidylethanol (PEth)-7 25531 Reviewed date:10/06/2023 06:49:40 PM Interpretation: Performing Lab:[facility] [place], [address] [place] [address], [place], Phone - [phone], Director - Markel Notes/Report: PHOSPHATIDYLETHANOL Negative Phosphatidylethanol (PEth) Negative Analyzed compound: PEth 16:0/18:1. 6-isxzocdvp-9-oleoyl-sn- mftkjsr-2-ekivdqvilubpmp . Analysis performed by Liquid Chromatography with Tandem Mass Spectrometry (LC/MS/MS). Detection limit: 20 ng/mL PEth levels in excess of 20 ng/mL are considered evidence of moderate to heavy ethanol consumption. However, the Center for Substance Abuse Treatment (CSAT) advises caution in interpretation and use of biomarkers alone to assess alcohol use. Results should be interpreted in the context of all available clinical and behavioral information. Reference: Substance Abuse and Mental Health Services Administration (2012). The Role of Biomarkers in the Treatment of Alcohol Use Disorders , 2012 Revision. Advisory, Volume 11, Issue 2. This test was developed and its performance characteristics determined by [facility]. It has not been cleared or approved by the Food and Drug Administration. PDF Report Reviewed date:10/06/2023 06:49:40 PM Interpretation: Performing Lab:[facility] [place], [address] [place] [address], [place], Phone - [phone], Director - Markel Notes/Report: Iron and TIBC-[id number] Reviewed date:04/20/2024 05:05:54 PM Interpretation: Performing Lab:[facility] [place], [address] [place] [address], Phone - [phone], Director - MNSulyy Notes/Report: Iron Bind.Cap.(TIBC) 328 250-450 ug/dL UIBC 270 118-369 ug/dL Iron 58 27-139 ug/dL Iron Saturation 18 15-55 % Ferritin-[id number] Reviewed date:04/20/2024 05:05:54 PM Interpretation: Performing Lab:[facility] [place], [address] [place] [address], Phone - [phone], Director - Josedry Notes/Report: Ferritin 85 15-150 ng/mL CBC With Differential/Platel et-[id number] Reviewed date:04/20/2024 05:05:54 PM Interpretation: Performing Lab:[facility] [place], [address] [place] [address], Phone - [phone], Director - MDSulyy Notes/Report: WBC 14.6 3.4-10.8 x10E3/uL RBC 4.62 3.77-5.28 x10E6/uL Hemoglobin 13.7 11.1-15.9 g/dL Hematocrit 41.2 34.0-46.6 % MCV 89 79-97 fL MCH 29.7 26.6-33.0 pg MCHC 33.3 31.5-35.7 g/dL RDW 14.2 11.7-15.4 % Platelets 390 150-450 x10E3/uL Neutrophils 57 Not Estab. % Lymphs 36 Not Estab. % Monocytes 6 Not Estab. % Eos 1 Not Estab. % Basos 0 Not Estab. % Neutrophils (Absolute) 8.3 1.4-7.0 x10E3/uL Lymphs (Absolute) 5.3 0.7-3.1 x10E3/uL Monocytes(Absolute) 0.9 0.1-0.9 x10E3/uL Eos (Absolute) 0.1 0.0-0.4 x10E3/uL Baso (Absolute) 0.0 0.0-0.2 x10E3/uL Immature Granulocytes 0 Not Estab. % Immature Grans (Abs) 0.0 0.0-0.1 x10E3/uL Reticulocyte Count-[id number] Reviewed date:04/20/2024 05:05:54 PM Interpretation: Performing Lab:[facility], [address] [place] [address], Phone - [phone], Director - Markel Notes/Report: Reticulocyte Count 1.4 0.6-2.6 % Vitamin D, 58-Ihlopki-[id number] Reviewed date:04/20/2024 05:05:54 PM Interpretation: Performing Lab:[facility], [address] [place] [address], Phone - [phone], Director - Markel Notes/Report: Vitamin D, 25-Hydroxy 36.1 30.0-100.0 ng/mL Vitamin D deficiency has been defined by the [place] [employer] and an Endocrine Society practice guideline as a level of serum 25-OH vitamin D less than 20 ng/mL (1,2). The Endocrine Society went on to further define vitamin D insufficiency as a level between 21 and 29 ng/mL (2). 1. IOM ([place] [employer]). 2010. Dietary reference intakes for calcium and D. [place]: The National Academies Press. 2. Radha MF, Nayla NC, Julien OVIEDO, et al. Evaluation, treatment, and prevention of vitamin D deficiency: an Endocrine Society clinical practice guideline. JCEM. 2010; 96(7):1911-30. Comp. Metabolic Panel (14)-3 43150 Reviewed date:04/20/2024 05:05:54 PM Interpretation: Performing Lab:[facility], [address] [place] [address], Phone - [phone], Director - Markel Notes/Report: Glucose 98 70-99 mg/dL BUN 10 8-27 mg/dL Creatinine 0.98 0.57-1.00 mg/dL eGFR 65 >59 mL/min/1.73 BUN/Creatinine Ratio 10 12-28 Sodium 143 134-144 mmol/L Potassium 3.7 3.5-5.2 mmol/L Chloride 101 96-106 mmol/L Carbon Dioxide, Total 21 20-29 mmol/L Calcium 10.9 8.7-10.3 mg/dL Protein, Total 7.8 6.0-8.5 g/dL Albumin 4.4 3.9-4.9 g/dL Globulin, Total 3.4 1.5-4.5 g/dL Bilirubin, Total 0.2 0.0-1.2 mg/dL Alkaline Phosphatase 113 44-121 IU/L AST (SGOT) 39 0-40 IU/L ALT (SGPT) 42 0-32 IU/L LP+Non-HDL Cholesterol-29937 5 Reviewed date:04/20/2024 05:05:54 PM Interpretation: Performing Lab:[facility], [address], [place], Phone - [phone], Director - Markel Notes/Report: Cholesterol, Total 164 100-199 mg/dL Triglycerides 156 0-149 mg/dL HDL Cholesterol 53 >39 mg/dL VLDL Cholesterol Julian 27 5-40 mg/dL LDL Chol Calc ([facility]) 84 0-99 mg/dL Non-HDL Cholesterol 111 0-129 mg/dL MRA Brain/Head Reviewed date:07/02/2024 02:28:08 PM Interpretation: Performing Lab: Notes/Report: Original Report EXAM: MRI BRAIN/HEAD WITHOUT CONTRAST INDICATION: Dizziness, hemiparesis following cerebral infarction TECHNIQUE: Multiplanar multisequence imaging of the brain was obtained, without intravenous contrast administration. COMPARISON: None. FINDINGS: There are no acute territorial infarcts seen within the brain on diffusion images. Area of encephalomalacia is present involving the right frontoparietal convexity, associated with volume loss and surrounded by gliosis, most likely consistent with an old right MCA distribution infarct. No midline shift, mass effect or hemorrhage seen. Scattered several punctate nonspecific T2 hyperintense foci are present along the periventricular white matter and centrum semiovale, suggestive of chronic microvascular ischemic or gliotic changes. Normal signal flow voids are seen along the major intracranial arteries. Craniocervical junction is preserved and the fourth ventricle is in the midline. Calvarium is intact. Ventricular system is symmetrical, without hydrocephalus seen. IMPRESSION: 1. No acute intracranial pathology seen. 2. T2 hyperintense signal involving the right frontoparietal convexity, surrounded by gliosis, consistent with encephalomalacia, most likely related to an old infarct. 3. Scattered several punctate T2 hyperintense foci along the cerebral white matter, suggestive of chronic microvascular ischemic or gliotic changes. Read by: Brock Mesa M.D. Reviewed and Electronically Signed by: Brock Mesa M.D. MR Brain Reviewed date:07/02/2024 02:28:08 PM Interpretation: Performing Lab: Notes/Report: Original Report EXAM: MRA BRAIN WITHOUT CONTRAST INDICATION: Dizziness, hemiparesis, infarction of the left nondominant hemisphere TECHNIQUE: 3-D oyto-yh-gazzdk without contrast COMPARISON: None. FINDINGS: There is normal signal seen along the distal vertebrobasilar circulation. Intracranial and cavernous ICA are patent and preserved. Both anterior, middle and posterior cerebral arteries are patent. No intracranial arterial occlusions are seen. 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 The left posterior communicating artery is patent. Overall, the exam is insensitive to detect tiny aneurysms less than 3 mm in diameter. IMPRESSION: Unremarkable MRA of the [place] given the limitations of the exam. Read by: Brock Mesa M.D. Reviewed and Electronically Signed by: Brock Mesa M.D. Reason For Referral No Information Medications Medication SIG (Take, Route, Frequency, Duration) Notes Start Date End Date Status Verapamil HCl ER 180 MG TAKE 2 CAPSULES BY MOUTH EVERY DAY; Duration: 90 days Active Olmesartan Medoxomil-HCTZ 20-12.5 MG TAKE 1 TABLET BY MOUTH EVERY DAY; Duration: 90 Active Qnasl 80 MCG/ACT 2 sprays in each nostril Nasally Once a day Active Senna-Time 8.6 MG Oral; Duration: 30 Days Not-Taking Clopidogrel Bisulfate 75 MG TAKE 1 TABLET BY MOUTH EVERY DAY; Duration: 90 Active Meclizine HCl 25 MG 1 tablet as needed Orally three times a day; Duration: 30 days Active Fluticasone Propionate 50 MCG/ACT SPRAY 2 SPRAYS INTO EACH NOSTRIL ONCE A DAY FOR 30 DAYS; Duration: 90 Active Tylenol 325 MG 2 tablets as needed Orally Every 4 hours Active Xanax 1 MG 1 Tablet Orally Four times a day; Duration: 30 days 07/19/2024 Active Hydrocortisone-Acetic Acid 1-2 % 3 drops into affected ear Otic Three times a day; Duration: 10 day(s) 11/23/2020 Active Carisoprodol 350 MG 1 tablet Orally Four Times a Day; Duration: 30 days As needed 07/19/2024 08/18/2024 Active Crestor 40 MG 1 tablet Orally Thre e Time a Week Active Hyoscyamine Sulfate ER 0.375 MG TAKE 1 TABLET BY MOUTH EVERY 12 HOURS; Duration: 90 Active Vitamin D 25 MCG (1000 UT) 3 capsule Orally Once a day Active Ferrous Sulfate 325 (65 Fe) MG TAKE 1 TABLET BY MOUTH EVERY DAY FOR 30 DAYS; Duration: 90 Active Dicyclomine HCl 10 MG Oral; Duration: 90 Days Active MiraLax 17 GM/SCOOP 1 scoop mixed with 8 ounces of fluid Orally Once a day; Duration: 30 day(s) Active Immunizations Vaccine Route Administration Date Status Comme nts Td (adult) preservative free Unknown 02/10/1994 Administered Td (adult) preservative free Unknown 08/18/2008 Administered Td (adult) preservative free IM Intramuscular 12/28/2021 Administered RHNLQ-51-Pnuwadp Vaccine Unknown 04/07/2020 Administere d DZICK-60-Anrjytv Vaccine Unknown 05/05/2020 Administere d EQUCJ-14-Mospxbw Vaccine Unknown 03/22/2021 Administere d RAGOD-30-Pdcyddi Vaccine Unknown 08/23/2021 Administere d COVID-19 Moderna BiValent Booster Unknown 11/30/2021 Administered COVID Spikevax Moderna Unknown 01/19/2023 Administered *Influenza-Quadrivalent IM Intramuscular 12/03/2022 Admini stered *Influenza-Fluzone IM Intramuscular 12/05/2023 Administere d *Aidzlsgag-Fajy-VD IM Intramuscular 12/07/2018 Administere d *Pyxhjnvtm-Pdlq-ZX IM Intramuscular 11/12/2019 Administere d *Aplpbsybc-Wbgg-FF IM Intramuscular 12/26/2020 Administere d *Ztbsrgncd-Yvxp-NV IM Intramuscular 12/17/2021 Administere d Social History Tobacco Use: Social History Observation Description Date Details (start date - stop date) Former Smoker NA - NA AUDIT-C (Standard) Question Answer Notes Did you have a drink containing alcohol in the p ast year? No Points 0 Interpretation Negative Tobacco Control (Standard) Question Answer Notes Tobacco use: Former smoker How long has it been since you last smoked? Grea ter than 10 years Problems Problem Type SNOMED Code ICD Code Onset Dates Problem Status W/U Status Risk Notes Problem Anemia due to chronic blood loss (disorder) (988580256) Iron deficiency anemia secondary to blood loss (chronic) (D50.0) Active confirmed Problem Leukocytosis (603961285) Elevated white blood cell count, unspecified (D72.829) Active confirmed Problem Vitamin D deficiency (94221861) Vitamin D deficiency, unspecified (E55.9) Active confirmed Problem Mixed hyperlipidemia (933271201) Mixed hyperlipidemia (E78.2) Active confirmed Problem Tobacco user (126667759) Nicotine dependence, cigarettes, in remission (F17.211) Active confirmed Problem Generalized anxiety disorder (71236671) Generalized anxiety disorder (F41.1) Active confirmed Problem Posttraumatic stress disorder (87258548) Post-traumatic stress disorder, chronic (F43.12) Active confirmed Problem Blepharospasm (00102973) Blepharospasm (G24.5) Active confirmed Problem Epidemic vertigo (943473371) Vestibular neuronitis, right ear (H81.21) Active confirmed Problem Chronic kidney disease due to hypertension (561476092159236) Hypertensive chronic kidney disease with stage 1 through stage 4 chronic kidney disease, or unspecified chronic kidney disease (I12.9) Active confirmed Problem Hemiplegia of nondominant side as late effect of cerebrovascular disease (203895384) Hemiplegia and hemiparesis following cerebral infarction affecting left non-dominant side (I69.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) Active confirmed Problem Chronic rhinitis (60068125) Chronic rhinitis (J31.0) Active confirmed Problem Leucoplakia of oral mucosa and tongue (6207577271961) Leukoplakia of oral mucosa, 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 confirmed Problem Dyskinesia of esophagus (11710235) Dyskinesia of esophagus (K22.4) Active confirmed Problem [place] - Nonalcoholic steatohepatitis (933091223) Nonalcoholic steatohepatitis (CORONA) (K75.81) Active confirmed Problem Lumbosacral radiculopathy (0746475) Radiculopathy, lumbosacral region (M54.17) Active confirmed Problem Fibromyalgia (518845864) Fibromyalgia (M79.7) Active confirmed Problem Chronic kidney disease stage 2 (297818206) Chronic kidney disease, stage 2 (mild) (N18.2) Active confirmed Problem Tachycardia (4260944) Tachycardia, unspecified (R00.0) Active confirmed Problem Solitary pulmonary nodule (396563556) Solitary pulmonary nodule (R91.1) Active confirmed Problem History of cerebrovascular accident without residual deficits (780284088) Personal history of transient ischemic attack (TIA), and cerebral infarction without residual deficits (Z86.73) Active confirmed Problem Irritable bowel syndrome (23239277) Mixed irritable bowel syndrome (K58.2) Active confirmed Problem Body mass index 30.00 to 34.99 (936901202929879) Body mass index [BMI] 31.0-31.9, adult (Z68.31) Active confirmed Problem Ulcer of esophagus (13302823) Ulcer of esophagus without bleeding (K22.10) Problem resolved confirmed Problem COVID19 PAVITHRA-Viru s Identified (U07.1) Problem resolved confirmed Vital Signs Heart Rate 117 /min 05/07/2024 Temperature 96.6 degrees Fahrenheit 05/07/2024 Blood pressure diastolic 76 mm Hg 04/19/2024 Oximetry 98 % 05/07/2024 Height 5 ft 3 in in 05/07/2024 Blood pressure systolic 126 mm Hg 04/19/2024 Weight 194 lbs 04/19/2024 BMI 34.36 kg/m2 04/19/2024 Procedures Procedure Date Ordered Date Performed Result Body Sit e COLONOSCOPY 01/22/2024 05/06/2022 N/A Encounters Encounter Location Date Provider Diagnosis Charisma Sanders MD [address] [id number] 09/25/2023 Charisma Sanders Hypertensive chronic kidney disease with stage 1 through stage 4 chronic kidney disease, or unspecified chronic kidney disease I12.9 ; Chronic kidney disease, stage 2 (mild) N18.2 ; Hemiplegia and hemiparesis following cerebral infarction affecting left non-dominant side I69.354 ; Generalized anxiety disorder F41.1 ; Post-traumatic stress disorder, chronic F43.12 ; Fibromyalgia M79.7 ; 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 ; Nonalcoholic steatohepatitis (CORONA) K75.81 ; Mixed irritable bowel syndrome K58.2 ; Mixed hyperlipidemia E78.2 ; Nicotine dependence, cigarettes, in remission F17.211 ; Vitamin D deficiency, unspecified E55.9 and Leukoplakia of oral mucosa, including tongue K13.21 Charisma Sanders MD [address] [id number] 12/05/2023 Charisma Sanders Encounter for immunization Z23 Charisma Sanders MD [address] [id number] 12/23/2023 Charisma Sanders Hypertensive chronic kidney disease with stage 1 through stage 4 chronic kidney disease, or unspecified chronic kidney disease I12.9 ; Encounter for general adult medical examination without abnormal findings Z00.00 ; Chronic kidney disease, stage 2 (mild) N18.2 ; Hemiplegia and hemiparesis following cerebral infarction affecting left non-dominant side I69.354 ; Generalized anxiety disorder F41.1 ; Post-traumatic stress disorder, chronic F43.12 ; Fibromyalgia M79.7 ; 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 ; Nonalcoholic steatohepatitis (CORONA) K75.81 ; Mixed irritable bowel syndrome K58.2 ; Mixed hyperlipidemia E78.2 ; Nicotine dependence, cigarettes, in remission F17.211 ; Vitamin D deficiency, unspecified E55.9 ; Encounter for screening for malignant neoplasm of colon Z12.11 ; Encounter for screening mammogram for malignant neoplasm of breast Z12.31 ; Encounter for screening for osteoporosis Z13.820 ; Encounter for screening for cardiovascular disorders Z13.6 ; Encounter for immunization Z23 ; Encounter for antibody response examination Z01.84 and Encounter for screening for other viral diseases Z11.59 Charisma Sanders MD [address] [id number] 03/11/2024 Charisma Sanders Acute upper respirat ory infection, unspecified J06.9 Charisma Sanders MD [address] [id number] 04/19/2024 Charisma Sanders Hypertensive chronic kidney disease with stage 1 through stage 4 chronic kidney disease, or unspecified chronic kidney disease I12.9 ; Chronic kidney disease, stage 2 (mild) N18.2 ; Hemiplegia and hemiparesis following cerebral infarction affecting left non-dominant side I69.354 ; Generalized anxiety disorder F41.1 ; Post-traumatic stress disorder, chronic F43.12 ; Fibromyalgia M79.7 ; 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 ; Nonalcoholic steatohepatitis (CORONA) K75.81 ; Mixed irritable bowel syndrome K58.2 ; Mixed hyperlipidemia E78.2 ; Nicotine dependence, cigarettes, in remission F17.211 and Vitamin D deficiency, unspecified E55.9 Charisma Sanders MD [address] [place] [address] [id number] 05/07/2024 Charisma Sanders Repeated falls R29.6 ; Dizziness and giddiness R42 and Hemiplegia and hemiparesis following cerebral infarction affecting left non-dominant side I69.354 Charisma Sanders MD PC [address] [place] [address] [id number] 09/05/2023 Charisma Sanders MD PC [address] [facility] [address] [place] [address] [id number] 09/08/2023 Charisma Sanders MD PC [address] [facility] [address] [place] [address] [id number] 09/08/2023 Charisma Sanders MD PC [address] [facility] [address] [place] [address] [id number] 10/02/2023 Charisma Sanders MD PC [address] [place] [address] [id number] 10/06/2023 Charisma Sanders MD PC [address] [facility] [address] [place] [address] [id number] 10/14/2023 Charisma Sanders MD PC [address] [place] [address] [place] [address] [id number] 10/21/2023 Charisma Sanders MD PC [address] [facility] [address] [place] [address] [id number] 11/18/2023 Charisma Sanders MD PC [address] [facility] [address] [place] [address] [id number] 11/26/2023 Charisma Sanders MD PC [address] [facility] [address] [place] [address] [id number] 11/27/2023 Charisma Sanders MD PC [address] [facility] [address] [place] [address] [id number] 12/03/2023 Charisma Sanders MD PC [address] [facility] [address] [place] [address] [id number] 12/08/2023 Charisma Sanders MD PC [address] [facility] [address] [place] [address] [id number] 12/23/2023 Charisma Sanders MD PC [address] [place], [place] [id number] 01/21/2024 Charisma Sanders MD PC [address] [place], [place] [id number] 01/29/2024 Charisma Sanders MD PC [address] [place], [place] [id number] 03/10/2024 Charisma Sanders MD PC [address] [place], [place] [id number] 03/15/2024 Charisma Sanders MD PC [address] [place], [place] [id number] 03/17/2024 Charisma Sanders MD PC [address] [place], [place] [id number] 03/19/2024 Charisma Sanders MD PC [address] [place], [place] [id number] 04/14/2024 Charisma Sanders MD PC [address] [place], [place] [id number] 04/22/2024 Charisma Sanders MD PC [address] [place], [place] [id number] 04/30/2024 Charisma Sanders MD PC [address] [place], [place] [id number] 05/06/2024 Charisma Sanders MD PC [address] [place], [place] [id number] 2024 Charisma Sanders MD PC [address] [place], [place] [id number] 05/31/2024 Charisma Sanders MD PC [address] [place], [place] [id number] 06/09/2024 Charisma Sanders MD PC [address] [place] [address] [id number] 06/17/2024 Charisma Sanders MD PC [address] [place], [place] [id number] 07/06/2024 Charisma Sanders MD PC [address] [place], [place] [id number] 07/15/2024 Charisma Sanders MD PC [address] [place], [place] [id number] 09/08/2023 Charisma Sanders MD PC [address] [place] [id number] 03/22/2024 Charisma Sanders MD PC 50 [facility] [address] [place] [address] [id number] 03/22/2024 Charisma Sanders MD [address] [facility] [address] [place] [address] [id number] 03/23/2024 Charisma Sanders MD 50 [facility] [address] [place] [address] [id number] 03/23/2024 Charisma Sanders MD [address] [id number] 06/01/2024 Charisma Sanders MD [address] [id number] 06/01/2024 Charisma Sanders MD [address] [id number] 07/06/2024 Charisma Sanders Assessments Encounter Date Diagnosis (ICD Code) Assessment Notes Treatment Notes Treatment Clinical Notes Section Notes 09/25/2023 Hypertensive chronic kidney disease with stage 1 through stage 4 chronic kidney disease, or unspecified chronic kidney disease (ICD-10 - I12.9) Stable at present. She thinks she is a little nervous today and that may explain the slightly elevated blood pressure. Continue current medical therapy. Her blood pressure had been less than 120 which would meet Sprint mind trial suggested blood pressure control level. 09/25/2023 Chronic kidney disease, stage 2 (mild) (ICD-10 - N18.2) Stable estimated GFR in the 60s. Recheck status and continue control comorbidity of hypertension 12/05/2023 Encounter for immunization (ICD-10 - Z23) 12/23/2023 Hypertensive chronic kidney disease with stage 1 through stage 4 chronic kidney disease, or unspecified chronic kidney disease (ICD-10 - I12.9) Stable at present. She is almost at a level that would be consistent with the Sprint mind trial results. She may be actually a little bit lower in an outpatient setting. At this point continue current medical therapy 12/23/2023 Encounter for general adult medical examination without abnormal findings (ICD-10 - Z00.00) General healthcare up-to-date. Check routine labs 03/11/2024 Acute upper respiratory infection, unspecified (ICD-10 - J06.9) See prior message for additional history. She most likely has a viral infection with causing bilateral ear discomfort. Recommend symptomatic treatment with plain Mucinex and she is intolerant of decongestants. This will take about a week to resolve. She may have recurrent illnesses during the winter as it is common. 04/19/2024 Hypertensive chronic kidney disease with stage 1 through stage 4 chronic kidney disease, or unspecified chronic kidney disease (ICD-10 - I12.9) Stable with current medical therapy. Continue same 04/19/2024 Chronic kidney disease, stage 2 (mild) (ICD-10 - N18.2) Stable estimated GFR in the 60s. Continue control comorbidity of hypertension 05/07/2024 Repeated falls (ICD-10 - R29.6) She had going to the emergency room for a fall. Apparently she was mopping the floor and there was a puddle and her slippers may have slipped on the puddle. This appears to be mechanical fall. However she says there was an episode prior to this where she was getting out of bed had walked and then all of a sudden her legs gave out. There was no recollection of vertigo at that time. Some of this may be related to mechanical issues but the episode where her legs gave out suggest some loss of muscle tone either from a vestibular basilar issue or a spinal stenosis issue. She seems to have strength in her legs therefore doubt that this is spinal stenosis and given her persistent vertigo even though this may be vestibular and auricular in etiology she would benefit from MRI to rule out vertebrobasilar insufficiency given her prior history of stroke 05/07/2024 Dizziness and giddiness (ICD-10 - R42) As above 04/19/2024 Hemiplegia and hemiparesis following cerebral infarction affecting left non-dominant side (ICD-10 - I69.354) Subjective Maggie still present and unchanged. She reports that when she has weakness she has some left-sided weakness. She tries to get as much rest as possible. 12/23/2023 Chronic kidney disease, stage 2 (mild) (ICD-10 - N18.2) Stable with estimated GFR in the 60s. Continue control of comorbidity of hypertension 09/25/2023 Hemiplegia and hemiparesis following cerebral infarction affecting left non-dominant side (ICD-10 - I69.354) Still has occasional weakness when she is fatigued. 09/25/2023 Generalized anxiety disorder (ICD-10 - F41.1) Stable at present. Continue supportive care as well as pharmacologic care. She she continues on as needed benzodiazepine therapy since she is intolerant of SSRIs. 12/23/2023 Hemiplegia and hemiparesis following cerebral infarction affecting left non-dominant side (ICD-10 - I69.354) Stable and unchanged. She still has weakness when she is fatigued but she also fell about a week ago and was seen in the emergency room. She still has some left-sided discomfort. It sounds as if she had a mechanical fall and slipped on some wet tile. Evaluation for fractures was unremarkable. She most likely has muscular injuries and should recover in 2 to 4 weeks 04/19/2024 Generalized anxiety disorder (ICD-10 - F41.1) Stable at present. Continue supportive care 05/07/2024 Hemiplegia and hemiparesis following cerebral infarction affecting left non-dominant side (ICD-10 - I69.354) As above 04/19/2024 Post-traumatic stress disorder, chronic (ICD-10 - F43.12) Stable at present with supportive and nonpharmacologic therapy 12/23/2023 Generalized anxiety disorder (ICD-10 - F41.1) Stable at present. Continue supportive care 09/25/2023 Post-traumatic stress disorder, chronic (ICD-10 - F43.12) Stable at present with supportive and nonpharmacologic therapy 09/25/2023 Fibromyalgia (ICD-10 - M79.7) Stable at present with supportive and nonpharmacologic therapy 12/23/2023 Post-traumatic stress disorder, chronic (ICD-10 - F43.12) Stable at present with supportive and nonpharmacologic therapy 04/19/2024 Fibromyalgia (ICD-10 - M79.7) Stable at present with supportive and nonpharmacologic therapy 04/19/2024 Iron deficiency anemia secondary to blood loss (chronic) (ICD-10 - D50.0) Stable on prior labs reviewed. Can recheck status 12/23/2023 Fibromyalgia (ICD-10 - M79.7) Stable at present with supportive and nonpharmacologic therapy 09/25/2023 Iron deficiency anemia secondary to blood loss (chronic) (ICD-10 - D50.0) Stable on prior labs as reviewed. Recheck status 09/25/2023 Nonalcoholic steatohepatitis (CORONA) (ICD-10 - K75.81) Her ALT had normalized. Recheck status to verify there is no decompensation as well as risk for hepatic fibrosis 12/23/2023 Iron deficiency anemia secondary to blood loss (chronic) (ICD-10 - D50.0) Stable on prior labs. Recheck status 04/19/2024 Nonalcoholic steatohepatitis (CORONA) (ICD-10 - K75.81) Stable with normalization of her ALT. Her fib 4 index is low and she is at low risk for fibrosis 04/19/2024 Mixed irritable bowel syndrome (ICD-10 - K58.2) Stable at present.Recommend continuing fiber as main treatment 12/23/2023 Nonalcoholic steatohepatitis (CORONA) (ICD-10 - K75.81) Her ALT has normalized. Her fib 4 index is relatively low and she is at low risk for hepatic fibrosis 09/25/2023 Mixed irritable bowel syndrome (ICD-10 - K58.2) Stable at present. 09/25/2023 Mixed hyperlipidemia (ICD-10 - E78.2) Her LDL is slightly elevated but her calculated cardiovascular risk is low. At this point can continue current medical therapy. 12/23/2023 Mixed irritable bowel syndrome (ICD-10 - K58.2) Stable at present.Recommend continuing fiber as main treatment 04/19/2024 Mixed hyperlipidemia (ICD-10 - E78.2) Fair control and prior labs as reviewed. She is taking her statin therapy at least 3 times a week. Recheck status. Goal is LDL less than 70 and if possible less than 50 04/19/2024 Nicotine dependence, cigarettes, in remission (ICD-10 - F17.211) Remains in remission 12/23/2023 Mixed hyperlipidemia (ICD-10 - E78.2) Stable on prior labs reviewed. Recheck status and goal would be LDL less than 50. She continues to take her rosuvastatin 3 times a week 09/25/2023 Nicotine dependence, cigarettes, in remission (ICD-10 - F17.211) Remains in remission 09/25/2023 Vitamin D deficiency, unspecified (ICD-10 - E55.9) Check level to verify that there is no deficiency. 12/23/2023 Nicotine dependence, cigarettes, in remission (ICD-10 - F17.211) Remains in remission 04/19/2024 Vitamin D deficiency, unspecified (ICD-10 - E55.9) Fair control and stable on prior labs as reviewed. Would continue vitamin D supplementation for goal level of 30+. She says when she was ill she did not take her vitamin D as much as her routine. 12/23/2023 Vitamin D deficiency, unspecified (ICD-10 - E55.9) Check level to verify that there is no deficiency. 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 No biopsy was needed. 12/23/2023 Encounter for screening for malignant neoplasm of colon (ICD-10 - Z12.11) Up-to-date on colon cancer screening 12/23/2023 Encounter for screening mammogram for malignant neoplasm of breast (ICD-10 - Z12.31) Due for repeat breast cancer screening 12/23/2023 Encounter for screening for osteoporosis (ICD-10 - Z13.820) Up-to-date on osteoporosis screening 12/23/2023 Encounter for screening for cardiovascular disorders (ICD-10 - Z13.6) Blood pressure stable. Can check for comorbidity of hyperlipidemia and hyperglycemia to further assess risk 12/23/2023 Encounter for immunization (ICD-10 - Z23) Vaccines up-to-date 12/23/2023 Encounter for antibody response examination (ICD-10 - Z01.84) Titers have been checked in the past and there is immunity to rubeola 12/23/2023 Encounter for screening for other viral diseases (ICD-10 - Z11.59) Can screen for hepatitis C as per general recommendation 04/19/2024 Other This note was created with voice dictation recognition software and may contain errors of grammar and syntax. Also labs were reviewed with patient. 09/25/2023 Other This note was created with voice dictation recognition software and may contain errors of grammar and syntax. Also labs were reviewed with patient. 12/23/2023 Other This note was created with voice dictation recognition software and may contain errors of grammar and syntax. Also labs were reviewed with patient. 05/07/2024 Other This note was created with voice dictation recognition software and may contain errors of grammar and syntax. Also labs were reviewed with patient. 03/11/2024 Other This note was created with voice dictation recognition software and may contain errors of grammar and syntax. Plan Of Treatment Pending Test Test Name Order Date MAMMOGRAM, SCREENING 09/10/2016 25OH VITAMIN D 06/23/2020 25OH VITAMIN D 11/16/2020 COMPLETE CBC WITH DIFF 11/16/2020 COMPLETE CBC WITH DIFF 06/23/2020 COMPLETE CBC WITH DIFF 11/21/2020 COMPLETE CBC WITH DIFF 11/12/2019 COMPLETE URINALYSIS 10/07/2022 COMPLETE URINALYSIS 11/16/2020 COMPLETE URINALYSIS 06/23/2020 COMPREHENSIVE METABOLIC PANEL 06/23/2020 COMPREHENSIVE METABOLIC PANEL 11/16/2020 COMPREHENSIVE METABOLIC PANEL 11/12/2019 FERRITIN 11/12/2019 FERRITIN 11/21/2020 FERRITIN 06/23/2020 FOLIC ACID 06/23/2020 FOLIC ACID 11/21/2020 FOLIC ACID 11/12/2019 HAPTOGLOBIN 11/12/2019 HAPTOGLOBIN 11/21/2020 HAPTOGLOBIN 06/23/2020 IMMUNOFIXATION SERUM 11/21/2020 IMMUNOFIXATION SERUM 11/12/2019 IRON & TIBC 11/12/2019 IRON & TIBC 11/21/2020 LDH 11/21/2020 LDH 11/12/2019 LDH 06/23/2020 LIPID PANEL W REFLEX TO DLDL 06/23/2020 LIPID PANEL W REFLEX TO DLDL 11/16/2020 RETICULOCYTE COUNT 06/23/2020 RETICULOCYTE COUNT 11/21/2020 RETICULOCYTE COUNT 11/12/2019 URINARY MICROALBUMIN 10/07/2022 URINARY MICROALBUMIN 06/23/2020 URINARY MICROALBUMIN 11/16/2020 VITAMIN B12 06/23/2020 VITAMIN B12 11/12/2019 VITAMIN B12 11/21/2020 CBC 11/29/2021 CBC 03/22/2021 COMPREHENSIVE METABOLIC PANEL 11/29/2021 COMPREHENSIVE METABOLIC PANEL 03/22/2021 COMPREHENSIVE METABOLIC PANEL 12/07/2018 FERRITIN 03/22/2021 FERRITIN 11/29/2021 HEPATITIS C VIRUS SCREEN 11/29/2021 LIPID PROFILE 11/29/2021 LIPID PROFILE 03/22/2021 LIPID PROFILE 12/07/2018 RETICULOCYTE COUNT 11/29/2021 RETICULOCYTE COUNT 03/22/2021 TOTAL IRON BINDING CAPACITY 03/22/2021 TOTAL IRON BINDING CAPACITY 11/29/2021 URINALYSIS 03/22/2021 URINALYSIS 11/29/2021 MICROALB/CREAT RATIO, RANDOM 03/22/2021 VITAMIN D, 25-HYDROXY 03/22/2021 VITAMIN D, 25-HYDROXY 11/12/2019 VITAMIN D, 25-HYDROXY 11/29/2021 COVID-19 (NOVEL CORONAVIRUS) PCR 021 COLOGUARD 10/02/2023 Urinalysis, Complete-[id number] 04/19/2024 Urinalysis, Complete-[id number] 12/23/2023 Urinalysis, Complete-[id number] 09/25/2023 Albumin/Creatinine Ratio,Urine-[id number] Albumin/Creatinine Ratio,Urine-[id number] Albumin/Creatinine Ratio,Urine-[id number] Next Appt Details Provider Name:Charisma Tommy , 08/19/2024 01:45:00 PM, [address] [place] [address], [phone], Provider Name:Charisma Tommy , 01/03/2025 08:30:00 AM, [address] [place] [address], [phone], Insurance Providers Payer Name Payer Address Payer Phone Subscriber Number Group Number Insured Name Patient Relationship to Insured Coverage Start Date Coverage End Date [facility] [address] [place] [phone] [id number]aut[address] Roxana Self - patient is the insured Medical (General) History Medical History History ICD Code 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 81 Generalized anxiety disorder F41.1 Personal history of transien t ischemic attack (TIA), and cerebral infarction without residual deficits Z86.73 Fibromyalgia M79.7 Radiculopathy, lumbosacral region M54.17 Tachycardia, unspecified R00.0 Ulcer of esophagus without bleeding K22. 10 Vestibular neuronitis, right ear H81.21 Irritable bowel syndrome with diarrhea K 58.0 Hypertensive chronic kidney disease with stage 1 through stage 4 chronic kidney disease, or unspecified chronic kidney disease I12.9 Nicotine dependence, cigarettes, in erick ssion F17.211 COVID19 PAVITHRA-Virus Identified (resolved 0 03/22/2021) Ulcer of esophagus without bleeding (res olved 11/29/2021) Surgical History Surgery Date(Month/Year) Hospitalization History Reason Date(Month/Year) Vertigo 12/2019 COVID 02/2021
--- NOTE | 2024-08-11 16:09 | MHC.OFFVIS ---
Vital Signs 08/11/24 16:21 Height 5 ft 1 in Weight 192 lb BMI 36.3 BP 110/72 Blood Pressure Location Rt brachial Position Sitting Pulse 110 H Pulse Source Pulse Oximeter Pulse Oximetry (%) 95 Oxygen Delivery Method Room Air Intake Visit Reasons: 1yr Intake Note: ESTABLISHED PATIENT for IBS + [facility]IC mgmt. 1 Year FUV. Chief Complaint; C.O. frequent diarrhea, exacerbated by certain foods, GI upset, GERD, and nausea w/o vomiting. Machine Builder Required: No Accompanied by: Family/Other Allergies evolocumab (From ScimetrikaSamuelsal) Allergy (Intermediate, Verified 08/11/24 16:23) vomiting Seasonal Allergies Allergy (Intermediate, Verified 08/11/24 16:23) hayfever synptoms Sulfa (Sulfonamide Antibiotics) Allergy (Intermediate, Verified 08/11/24 16:23) Rash metoprolol Adverse Reaction (Intermediate, Verified 08/11/24 16:23) depression ramipril Adverse Reaction (Intermediate, Verified 08/11/24 16:23) Cough aspirin Adverse Reaction (Mild, Verified 08/11/24 16:23) Vomiting HPI HPI 1yr: Details: LAST VISIT: GERD (gastroesophageal reflux disease) IBS (irritable bowel syndrome) Diverticulosis Abdominal bloating Plan Agreeing with weight loss. Was encouraged to increase fluid intake and activity to promote better bowel motility. Stressed with the patient the importance of moving her bowels daily. Left side of her colon was found to have moderate diverticulosis. The importance of emptying her bowels stressed with patient. Right lower quadrant pain related to gas trapping as it goes away as soon as she takes Gas-X. Bowel motility could be decreased due to severe diverticulosis on left side. Patient was encouraged to take MiraLax daily as well as Senokot to help her empty her bowels better. High-fiber diet stressed with patient, however patient will need to adjust her diet as some of high-fiber food can be very gassy. Patient was also encouraged to take probiotics daily. Patient will return in the office in 1 year, sooner on as needed basis. Patient is agreeable to this plan and verbalizes understanding of instructions. She was given the opportunity to ask questions and all questions answered. TODAY'S VISIT: Patient is here today for follow-up. Patient reports that in the past few weeks she has been having return of her symptoms: abdominal bloating, postprandial diarrhea, abdominal pain and cramping. Patient reports that the worse is her bloating and postprandial diarrhea. Patient reports that she has been going off her low FODMAP diet. Patient reports that she loves cheese and has been eating a lot of cheese. Patient also admits to having stress in her family. This has been going on for the past few months. Patient is raiki therapist told her that her GI symptoms are possible and most likely due to elevated stress. Patient denies any nausea or vomiting. Patient denies any dyspepsia, dysphagia or odynophagia fascia. Reports that when she takes dicyclomine she feels like the cramping settles. Not sure if she has enough fiber in her diet. Patient reports that even though she has loose stools she does not feel like she empties her bowels completely. Patient reports that she eats breath, however it is gluten free. Most of her pasta is also gluten free. Patient denies any melena, hematochezia, unintentional weight loss or ribbon like stools. [facility] Medical History Diverticulosis GERD (gastroesophageal reflux disease) IBS (irritable bowel syndrome) S/P transesophageal echocardiogram (JULISA) Hyperlipidemia Stroke HTN (hypertension) Surgical History History of esophagogastroduodenoscopy (EGD) Hx of colonoscopy Family History Mother HTN (hypertension) History of open heart surgery Father Atrophic emphysema History of heart attack Social History Patient Tobacco Use Status: Former Tobacco user Review of Systems Const Denies weight gain and Denies weight loss ENT Reports no additional complaints, Denies dysphagia and Denies odynophagia Card Reports no additional complaints Resp Reports no additional complaints GI Reports abdominal pain (Occasional), Denies belching, Denies melena, Reports bloating, Denies change in bowel habits, Reports constipation (Occasional), Denies dysphagia, Denies excessive flatus, Denies dyspepsia, Denies heartburn, Denies diarrhea, Reports loose stools (Postprandial), Denies nausea, Denies odynophagia and Denies vomiting Musc Reports no additional complaints Neuro Reports no additional complaints Psych Reports no additional complaints Endo Reports no additional complaints Physical Exam Vital Signs: Last Vital Signs Pulse 110 H 08/11/24 16:21 BP 110/72 08/11/24 16:21 Pulse Ox 95 08/11/24 16:21 Oxygen Delivery Method Room Air 08/11/24 16:21 BMI result Body Mass Index 36.3 Const General: healthy appearing and no acute distress Nutritional Appearance: obese Orientation/consciousness: patient oriented x3 Resp Effort & Inspection: normal respiratory effort, able to speak in complete sentences, no tracheal deviation and symmetric chest movement Auscultation: clear to auscultation bilaterally Cardio Rate: regular rate GI Inspection: Yes normal to inspection, No distended and Yes obesity Palpation (GI): Soft to palpation, not firm, nontender and No hepatosplenomegaly present Auscultation: normal bowel sounds General: Yes no CVA tenderness Back/Spine/Pelvis Back: no CVA tenderness Skin General skin exam: elasticity normal, turgor normal and dry skin Neuro General: patient oriented x3 Psych Appearance: grossly normal Mental Status: mental status grossly normal Assessment & Plan Assessment & Plan (1) GERD (gastroesophageal reflux disease): Code(s): K21.9 - Gastro-esophageal reflux disease without esophagitis Category: Medical Qualifiers: Esophagitis presence: esophagitis presence not specified Qualified Code(s): K21.9 - Gastro-esophageal reflux disease without esophagitis (2) IBS (irritable bowel syndrome): Code(s): K58.9 - Irritable bowel syndrome, unspecified Category: Medical Qualifiers: Irritable bowel syndrome type: with both diarrhea and constipation Qualified Code(s): K58.2 - Mixed irritable bowel syndrome (3) Diverticulosis: Code(s): K57.90 - Diverticulosis of intestine, part unspecified, without perforation or abscess without bleeding Category: Medical (4) Postprandial abdominal bloating: Code(s): R14.0 - Abdominal distension (gaseous) (5) Postprandial diarrhea: Code(s): K52.9 - Noninfective gastroenteritis and colitis, unspecified Plan Patient will increase fiber in her diet. Patient can try Metamucil 3 in 1 pre and probiotics. Patient was encouraged to continue follow low FODMAP diet. Avoid dietary triggers and late night snacking. Continue dicyclomine as needed. The importance of emptying her bowels daily was discussed with patient. Patient will increase fluid intake and activity to promote better bowel motility. Patient will follow-up in 3-4 months, sooner on as needed basis. She is agreeable to this plan and verbalizes understanding of instructions. She was given the opportunity to ask questions and all questions answered. Thank you for allowing me to participate in her care Medications: Refilled hydrocortisone 2.5% (Proctosol HC) 1 appl ME BID-QID PRN 30 grams 2RF hemorrhoids dicyclomine 10 mg PO TID PRN 90 caps 2RF for abdominal pain K58.9 - Irritable bowel syndrome, unspecified Coding Level of Care Code Est Pt Level 4 (44184) Complex EM visit Add On G2211 Diagnoses Gastroesophageal reflux disease, unspecified whether esophagitis present K21.9 Esophagitis presence: esophagitis presence not specified Irritable bowel syndrome with both constipation and diarrhea K58.2 Irritable bowel syndrome type: with both diarrhea and constipation Diverticulosis K57.90 Postprandial abdominal bloating R14.0 Postprandial diarrhea K52.9 Time Spent (min) 40 Comment 25 minutes spent with patient and additional 15 minutes spent reviewing her records
[2024-08-11 16:21] VITALS: BP 110/72; PULSE 110; O2SAT 95; BMI 36.3
== END 2024-08-11 16:57 | disposition home or self-care (01) ==
LOC: HO.HGI 15:45
PROVIDERS: PCP Internal Medicine; Visit Provider Nurse Practitioner Family
DX: K21.9 Gastro-esophageal reflux disease without esophagitis (principal); K58.2 Mixed irritable bowel syndrome; K57.90 Diverticulosis of intestine, part unspecified, without perforation or abscess without bleeding; R14.0 Abdominal distension (gaseous); K52.9 Noninfective gastroenteritis and colitis, unspecified
CPT/HCPCS: 99214